=== PATIENT | male | born 1950 | race Caucasian/White ===

== ENCOUNTER 2018-04-04 20:10 | Emergency (ER) | payer MEDICARE, BC ==
[2018-04-04 20:40] VITALS: BP 187/73; PULSE 62; RESP 18; TEMP 98.4
--- NOTE | 2018-04-04 21:12 | ED ---
Upper Extremity HPI - General Chief Complaint: Extremity Injury, Upper Stated Complaint: Swollen hand Time Seen by Provider: 04/04/18 20:49 Source: patient Mode of arrival: ambulatory Limitations: no limitations - History of Present Illness Initial Comments: This is a 67-year-old male with past medical history of gout and previous DVT following an intra-abdominal surgery who presents today for chief complaint of left hand swelling x1 day. Patient states that last night he noticed swelling of his left hand and proximal forearm [place] evening they did not seek immediate medical attention, but has been icing and raising the left hand. He denies pain in the area, trauma to the hand or forearm, being bitten or stung by any insect, strenuous physical activity, pain in the hand, erythema, warmth, tenderness to palpation, fever, chills, chest pain, shortness of breath, facial swelling, numbness, hematuria, tingling or parathesias, cough, hoarseness or any other symptoms. Pt was concerned about a DVT so they presented to the ER with his daughter for further evaluation. Remainder ROS (-). VS stable. - Related Data Allergies Allergy/AdvReac Type Severity Reaction Status Date / Time No Known Allergies Allergy Verified 04/04/18 20:40 Review of Systems ROS Statement: Those systems with pertinent positive or pertinent negative responses have been documented in the HPI. ROS Other: All systems not noted in ROS Statement are negative. Constitutional: Denies: fever, chills Eyes: Denies: eye pain, vision change ENT: Denies: ear pain, throat pain Respiratory: Denies: cough, dyspnea, wheezes, hemoptysis, stridor Cardiovascular: Denies: chest pain, palpitations, orthopnea, edema Gastrointestinal: Denies: abdominal pain, nausea, vomiting, diarrhea, constipation, hematemesis, melena, hematochezia Genitourinary: Denies: urgency, dysuria Musculoskeletal: Denies: back pain Skin: Reports: as per HPI. Denies: rash, lesions Neurological: Denies: headache, weakness, numbness, paresthesias, confusion, abnormal gait Past Medical History Past Medical History: Hypertension History of Any Multi-Drug Resistant Organisms: None Reported Past Surgical History: Bowel Resection, Cholecystectomy, Pacemaker Additional Past Surgical History / Comment(s): colostomy repair Past Psychological History: No Psychological Hx Reported Smoking Status: Never smoker Past Alcohol Use History: Daily Past Drug Use History: None Reported General Exam - General Exam Comments Initial Comments: General: The patient is awake and alert, in no distress, and does not appear acutely ill. Patient appears very comfortable and pleasant. Eye: Pupils are equal, round and reactive to light, extra-ocular movements are intact. No nystagmus. There is normal conjunctiva bilaterally. No signs of icterus. Ears, nose, mouth and throat: There are moist mucous membranes and no oral lesions. Neck: The neck is supple, there is no tenderness or JVD. Cardiovascular: There is a regular rate and rhythm. No murmur, rub or gallop is appreciated. Respiratory: Lungs are clear to auscultation, respirations are non-labored, breath sounds are equal. No wheezes, stridor, rales, or rhonchi. Musculoskeletal: Normal ROM, no tenderness of the shoulders, elbows, wrists, hands bilaterally. No tenderness to palpation of the hands bilaterally. Strength 5/5 of the shoulders, elbow, wrists hands and digits bilaterally. Sensation intact of the hands bilaterally. Pulses equal bilaterally 2+. Less than 2 second capillary refill. Patient able to make the okay, fingers cross & stop- radial, ulnar and median n intact. Neurological: A&O x 3. CN II-XII intact, There are no obvious motor or sensory deficits. Coordination appears grossly intact. Speech is normal. Skin: Skin is warm and dry and no rashes or lesions are noted. Nonpitting, soft tissue swelling of the left hand, no evidence of erythema, ecchymosis, breaks in the skin/abrasions. Psychiatric: Cooperative, appropriate mood & affect, normal judgment. Limitations: no limitations Course Vital Signs 04/04/18 20:35 Temperature 98.4 F Pulse Rate 62 Respiratory 18 Rate Blood Pressure 187/73 O2 Sat by Pulse 96 Oximetry Medical Decision Making - Medical Decision Making Coagulation studies, uric acid, duplex ultrasound of the left upper extremity, and chest x-ray returned within normal limits. At this time we had low suspicion for a superior vena cava syndrome, DVT, or gout causing the left extremity swelling given studies a physical examination findings. Patient neurovascularly exam unremarkable, with no tenderness to palpation, no obvious deformities and no history of trauma at this time I feel x-ray is not indicated. Very low suspicion for overlying cellulitis as there is no erythema or breaks the skin. There was a chronic superficial thrombosis of the left upper extremity except possibly be causing the swelling of the left hand and forearm. Patient is to follow-up with his primary care in 1-2 days for further evaluation treatment. Case is discussed in detail with Dr. Baez at this time we feel pt is stable for d/c with close f/u. Pt was told to return to the ER for any change in symptoms and instructed to use [id number] NSAIDs, and elevate the hand. 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 Please elevate and apply heat to area as discussed. Please follow-up with family doctor in the next 2 days for further evaluation and treatment. Please return to emergency room if the symptoms increase or worsen or for any other concerns. Is patient prescribed a controlled substance at d/c from ED?: No Referrals: Nonstaff,Physician [Primary Care Provider] - 1-2 days Time of Disposition: 23:45
[2018-04-04 21:23] LABS: Partial Thromboplastin Time 22.2 sec (22.0-30.0); Prothrombin Time 9.8 sec (9.0-12.0)
--- NOTE | 2018-04-04 23:53 | US ---
EXAMINATION TYPE: US venous doppler duplex UE LT DATE OF EXAM: 04/04/2018 COMPARISON: NONE CLINICAL HISTORY: Pain. SIDE PERFORMED: Right Left Arm: Negative for DVT Basilic vein only shows partial compression. IMPRESSION: There is chronic venous thrombosis in the basilic vein which is a super facial vein. There is patency of the subclavian axillary veins. There is patency of the brachial vein. No deep venous thrombosis s een.
--- NOTE | 2018-04-05 00:03 | XR ---
EXAMINATION TYPE: XR chest 2V DATE OF EXAM: 04/04/2018 COMPARISON: 10/29/2011 HISTORY: Chest pain TECHNIQUE: Frontal and lateral views of the chest are obtained. FINDINGS: Heart and mediastinum are normal. Lungs are clear of infiltrate. There is no heart failure . Costophrenic angles are fairly clear. There is left axillary pacemaker with the lead tips in the ri ght ventricle. Bony thorax appears intact. IMPRESSION: No active cardiopulmonary disease. There is improved inspiration and clearing of some li near density at the left lung base compared to old exam.
== END 2018-04-05 00:05 | disposition home or self-care (01) ==
LOC: EC 20:10
DX: I82.712 Chronic embolism and thrombosis of superficial veins of left upper extremity (principal); Z95.0 Presence of cardiac pacemaker
CPT/HCPCS: 36415; 71046; 84550; 85610; 85730; 99284

== ENCOUNTER → 2019-03-23 | Outpatient (CLI) | payer MEDICARE, BC ==
[2019-03-23 15:05] LABS: HGB 17.2 gm/dL (13.0-17.5); MCH 30.4 pg (25.0-35.0); MCHC 33.1 g/dL (31.0-37.0); MCV 91.9 fL (80.0-100.0); Mean Platelet Volume 6.9; Platelet Count 222 k/uL (150-450); RBC 5.65 m/uL (4.30-5.90); RDW 13.5 % (11.5-15.5); WBC 8.6 k/uL (3.8-10.6)
[2019-03-23 18:14] LABS: Anion Gap 7.4 mmol/L (4.00-12.00); Calcium 10.1 mg/dL (8.7-10.3); Carbon Dioxide 29.6 mmol/L (21.6-31.8); Magnesium 1.9 mg/dL (1.5-2.4); Potassium 4.7 mmol/L (3.5-5.5)
== END | disposition home or self-care (01) ==
LOC: LABWHC1 14:46
PROVIDERS: ATTEND Internal Medicine Interventional Cardiology
DX: I42.9 Cardiomyopathy, unspecified (principal)
CPT/HCPCS: 36415; 80048; 83735; 85027

== ENCOUNTER 2023-10-15 14:55 | Day surgery (SDC) | payer MEDICARE, BC ==
[~2023-10-15 14:55] MED LIST: SODIUM CHLORIDE 0.9% 1,000 ML IV SCH
[2023-10-15] MEDS: SODIUM CHLORIDE 0.9% 500 ML 500 ML IV ONE (15:39)
[2023-10-15] MEDS: IOPAMIDOL-370 100ML BTL IVP ONE ×3 (16:03)
[2023-10-15 16:04] VITALS: BP 147/92; PULSE 56; RESP 16; TEMP 97.7
--- NOTE | 2023-10-15 16:50 | P.EPPROC ---
- EP Procedure Note Electrophysiology Procedure Note: Diagnosis Complete heart block Cardiomyopathy with 100% RV pacing, dual-chamber ICD in situ Previously attempts at LV lead placement proved to be futile Very tortuous coronary sinus Very tortuous anterior and anterolateral veins No lateral vein or posterolateral vein Multiple leads had been used from different manufacturers but none of them was stable in the anterolateral vein Procedure Cinefluoroscopy Dual-chamber ICD, single coil ICD lead no fractures or breaks Atrial lead and good position Left upper extremity venogram performed Very mild stenosis in the subclavian vein Significant 100% occlusion of a long segment of the innominate vein up to the SVC Right upper extremity venogram performed Patent right subclavian vein At this time the patient does not have any right upper extremity swelling on account of adequate collaterals draining finding into the SVC While the option for a left-sided left bundle lead exists, this may result in occlusion of the left subclavian vein resulting in bilateral extremity edema which should be avoided I would not attempt coronary sinus access or any attempt at LV lead placement via the coronary sinus veins Recommend Thoracoscopic approach for epicardial LV lead placement for management of cardiomyopathy with 100% RV pacing in the setting of complete heart block Discussed pros and cons with the patient
== END 2023-10-15 16:45 | disposition home or self-care (01) ==
LOC: CATHEP 14:55
PROVIDERS: ATTEND Internal Medicine Clinical Cardiac Electrophysiology
DX: I44.2 Atrioventricular block, complete (principal); Q26.0 Congenital stenosis of vena cava; I10 Essential (primary) hypertension; E11.9 Type 2 diabetes mellitus without complications; E78.5 Hyperlipidemia, unspecified; I49.5 Sick sinus syndrome; Z95.0 Presence of cardiac pacemaker; Z79.84 Long term (current) use of oral hypoglycemic drugs; Z79.899 Other long term (current) drug therapy
CPT/HCPCS: 36005; 75820; Q9967

== ENCOUNTER → 2023-12-09 | Outpatient (CLI) | payer MEDICARE, BC ==
[2023-12-09 15:38] LABS: Basophils # (A) 0.2 k/uL (0-0.2); Basophils % (A) 2 %; Eosinophils # (A) 0.2 k/uL (0-0.7); Eosinophils % (A) 3 %; HCT 51.2 % (39.0-53.0); HGB 17.4 gm/dL (13.0-17.5); Lymphocytes # (A) 2.6 k/uL (1.0-4.8); Lymphocytes % (A) 29 %; MCHC 33.9 g/dL (31.0-37.0); MCV 91.3 fL (80.0-100.0); Mean Platelet Volume 7.7; Monocytes # (A) 0.6 k/uL (0-1.0); Monocytes % (A) 7 %; Neutrophils # (A) 5.2 k/uL (1.3-7.7); Neutrophils % (A) 58 %; Platelet Count 191 k/uL (150-450); RBC 5.61 m/uL (4.30-5.90); RDW 12.8 % (11.5-15.5); WBC 9.1 k/uL (3.8-10.6)
[2023-12-09 15:54] LABS: Partial Thromboplastin Time 23.2 sec (22.0-30.0); Prothrombin Time 10.9 sec (10.0-12.5)
[2023-12-09 16:18] LABS: African American GFR (CKD) 89 (>60 ml/min/1.73 sqM); Anion Gap 7 mmol/L; Blood Urea Nitrogen 17 mg/dL (9-20); Carbon Dioxide 29 mmol/L (22-30); Chloride 98 mmol/L (98-107); Glucose 247 mg/dL (74-99); Non-African American GFR(CKD) 77 (>60 ml/min/1.73 sqM); Potassium 4.2 mmol/L (3.5-5.1); Sodium 134 mmol/L (137-145)
[2023-12-09 18:18] LABS: Appearance,Urine Clear (Clear); Bilirubin,Urine Negative (Negative); Blood,Urine Negative (Negative); Color,Urine Yellow; Glucose,Urine (UA) 4+ (Negative); Ketones,Urine Negative (Negative); Leukocyte Esterase,Urine Negative (Negative); Nitrite,Urine Negative (Negative); Protein,Urine Negative (Negative); Urobilinogen,Urine <2.0 mg/dL (<2.0)
== END | disposition home or self-care (01) ==
LOC: LABPAT 14:55
PROVIDERS: ATTEND Thoracic Surgery (Cardiothoracic Vascular Surgery)
DX: Z01.812 Encounter for preprocedural laboratory examination (principal); R53.83 Other fatigue; R58 Hemorrhage, not elsewhere classified; Z79.899 Other long term (current) drug therapy
CPT/HCPCS: 80051; 81003; 82565; 82947; 84520; 85025; 85610; 85730; 86850; 86900; 86901; 87086

== ENCOUNTER 2023-12-10 09:37 | Inpatient (IN) | payer MEDICARE, BC ==
[~2023-12-10 09:37] MED LIST changes: +LIDOCAINE 1% (10MG/ML) FOR IV START INTRADERMA PRN; +MIDAZOLAM 2 MG/2 ML VIAL IV PRN; -SODIUM CHLORIDE 0.9% 1,000 ML IV SCH
[2023-12-10] MEDS: LACTATED RINGERS 1,000 ML IV SCH (10:07)
[2023-12-10 10:29] LABS: Glucose,Whole Blood 255 mg/dL (70-110)
[2023-12-10] MEDS: INSULIN ASPART (NovoLOG) 100 UNIT/ML VIAL SQ ONE (10:32)
[2023-12-10] MEDS: ONDANSETRON 4 MG/2 ML VIAL IVP ONE ×2 (10:32→17:15)
[2023-12-10] MEDS: MIDAZOLAM 2 MG/2 ML VIAL IVP ONE (10:36)
[2023-12-10] MEDS: fentaNYL (PF) 50 MCG/ML 2 ML AMP IVP ONE (10:36)
[2023-12-10] MEDS: BUPIVACAINE (PF) 0.5% 30 ML VIAL SQ ONE ×3 (10:44→13:27)
--- NOTE | 2023-12-10 10:52 | P.ANPRN ---
Procedure Note - Anesthesia - Nerve Block Performed Left Erector Spinae Single Time Out Performed: Yes (1038) Date of Procedure: 12/10/23 Procedure Start Time: 10:39 Procedure Stop Time: 10:44 Location of Patient: PreOp Indication: Acute Post-Operative Pain, Requested by Surgeon Specifically requested for management of pain by DrHilario: John Bobby Sedation Type: Sedate with meaningful contact maintained Preparation: Sterile Prep Position: Sitting Catheter: None Needle Types: Pajunk Needle Gauge: 21 Ultrasound used to visualize needle placement: Yes Ultrasound used to observe medication spread: Yes Injectate: 0.5% Ropivacaine (see comment for volume) (30cc) Blood Aspirated: No Pain Paresthesia on Injection Noted: No Resistance on Injection: Normal Image Stored and Saved: Yes Events: Uneventful and Well Tolerated
[2023-12-10] MEDS ORDERED: NEOSTIGMINE 1 MG/ML 10 ML VIAL ONE (11:32)
[2023-12-10] MEDS ORDERED: ePHEDrine 50 MG/ML 1 ML VIAL ONE (11:32)
[2023-12-10] MEDS ORDERED: ROPIVACAINE 5 MG/ML 30 ML VIAL ONE (11:32)
[2023-12-10] MEDS ORDERED: LIDOCAINE 1% INJ 10MG/ML (20 ML MDV) ONE (11:32)
[2023-12-10] MEDS ORDERED: GLYCOPYRROLATE 0.2 MG/ML 2 ML VIAL ONE (11:32)
[2023-12-10] MEDS ORDERED: WATER FOR INJECTION, STERILE 10 ML VIAL IV ONE (11:32)
[2023-12-10] MEDS ORDERED: PROPOFOL 10 MG/ML 20 ML VIAL IV ONE (11:32)
[2023-12-10] MEDS ORDERED: ACETAMINOPHEN IV (For NPO) 1,000 MG/100 ML VIAL ONE (11:32)
[2023-12-10] MEDS ORDERED: fentaNYL (PF) 50 MCG/ML 2 ML AMP ONE (11:32)
[2023-12-10] MEDS ORDERED: ROCURONIUM 10 MG/ML (5 ML VIAL) IV ONE (11:32)
[2023-12-10 12:50] LABS: Glucose,Whole Blood 217 mg/dL (70-110)
[2023-12-10] MEDS: LACTATED RINGERS 1,000 ML IV ONE (13:22)
--- NOTE | 2023-12-10 13:56 | P.OP ---
Date of Procedure: 12/10/23 Preoperative Diagnosis: Complete Heart Block s/p Dual ICD with RV Lead. Postoperative Diagnosis: Same Procedure(s) Performed: 1. Bronchoscopy 2. Left video assisted thorascopic surgery with epicardial LV lead placement. 3. Upgrade of [employer] BiV Pacer with single coil RV ICD lead to [employer]-P with LV epidcardial lead Implants: [employer] RF Cardiac Resynchronization Therapy Pulse Generator - PPM Model # [id number] Serial # [id number] Epicardial LV Lead [employer] Model #[id number] Serial #[id number] Anesthesia: GETA Surgeon: John Bobby Bulldozer/Loader/Compactor/Scraper #1: Yves Fuentes Bulldozer/Loader/Compactor/Scraper #2: Michael Moran Estimated Blood Loss (ml): 25 Pathology: none sent Condition: stable Disposition: PACU Indications for Procedure: This patient is a 73 year-old M with CHF and cardiomyopathy in the past who had PPM with a RV ICD. The patient now requires conversion to a Dual chamber PPM, His EF improved and the ICD was note indicated. Operative Findings: Chronic Lead Numbers normal New LV epicardial lead R wave - 2.1 mV Imp 496 ohms Amp 1.0V @ 0.5ms Description of Procedure: The patient was brought back to the operating room and placed in the supine position. The patient was intubated with a double lumen tube and bronchoscopy was performed to confirm position. The patient was then positioned in the right lateral decubitus position and his left chest was prepped and draped in the usual sterile fashion. A 3cm incision was made in the 8th intercostal space posterior axillary line. An additional 2cm incision was made in the 10th intercostal space mid axillary line and a 1cm incision was made anteriorly in the 6th intercostal space. The pericardium was incised using an endo shear and opened longitudinally under the phrenic nerve. The screw in lead was placed on the LV away from the coronary arteries. This was tunneled anteriorly. A 28F chest tube was placed via the anterior incision and two lung ventilation was resumed. All incisions were closed in layers. The patient was placed supine and re-prepped and draped. The tunneled lead when then tunneled once again superiorly to the pocket which was opened and RA, RV and LV leads were fastened to the new generator which was connected and tested. These incisions were then closed in layers again. Of note, the generator was placed in antibiotic case.
[2023-12-10] MEDS: HYDROmorphone 0.5 MG/0.5 ML SYRINGE IVP PRN (14:14)
[2023-12-10 14:17] LABS: Glucose,Whole Blood 200 mg/dL (70-110)
--- NOTE | 2023-12-10 14:23 | XR ---
EXAMINATION TYPE: XR chest 1V portable DATE OF EXAM: 12/10/2023 COMPARISON: 04/04/2018 HISTORY: Postop TECHNIQUE: Single frontal view of the chest is obtained. FINDINGS: Limited inspiration with bilateral consolidation and pleural effusion. Heart is enlarged. Arthropathy of the shoulders and degenerative change of the spine. Cardiac device is stable. Left-sided chest tube with no sizable pneumothorax. Small bilateral pleural effusions. Surgical clips in the upper abdomen. Subcutaneous emphysema along the left chest. IMPRESSION: 1. Left-sided chest tube with bilateral consolidation and small effusion. No sizable pneumothorax. Mi ld venous congestion in the differential diagnosis.
[2023-12-10 16:31] LABS: Glucose,Whole Blood 227 mg/dL (70-110)
[2023-12-10] MEDS ORDERED: METOCLOPRAMIDE 5 MG/ML 2 ML VIAL IVP PRN (16:55)
[2023-12-10] MEDS ORDERED: bisacodyL 10 MG SUPP RECTAL PRN (16:55)
[2023-12-10] MEDS ORDERED: ONDANSETRON 4 MG/2 ML VIAL IVP PRN (16:55)
[2023-12-10] MEDS ORDERED: IPRATROPIUM-ALBUTEROL 3 ML NEB IH PRN (16:55)
[2023-12-10] MEDS ORDERED: traMADol 50 MG TAB PO PRN (16:55)
[2023-12-10] MEDS: IPRATROPIUM-ALBUTEROL 3 ML NEB IH SCH (17:08)
[2023-12-10] MEDS: ceFAZolin 3 GM in SODIUM CHLORIDE 0.9% 100 ML IVPB SCH (17:15)
[2023-12-10] MEDS: DEXAMETHASONE SOD PHOSPHATE 4 MG/ML 1 ML VIAL IV ONE (17:15)
[2023-12-10 17:34] LABS: Basophils # (A) 0.1 k/uL (0-0.2); Basophils % (A) 0 %; Eosinophils # (A) 0.1 k/uL (0-0.7); Eosinophils % (A) 0 %; HCT 48.6 % (39.0-53.0); HGB 16.4 gm/dL (13.0-17.5); Lymphocytes # (A) 1.3 k/uL (1.0-4.8); Lymphocytes % (A) 8 %; MCH 30.9 pg (25.0-35.0); MCHC 33.8 g/dL (31.0-37.0); MCV 91.6 fL (80.0-100.0); Mean Platelet Volume 7.6; Monocytes # (A) 0.8 k/uL (0-1.0); Monocytes % (A) 5 %; Neutrophils # (A) 13.8 k/uL (1.3-7.7); Neutrophils % (A) 85 %; Platelet Count 151 k/uL (150-450); RDW 12.8 % (11.5-15.5); WBC 16.2 k/uL (3.8-10.6)
[2023-12-10 17:50] LABS: African American GFR (CKD) >90 (>60 ml/min/1.73 sqM); Anion Gap 6 mmol/L; Blood Urea Nitrogen 18 mg/dL (9-20); Calcium 8.7 mg/dL (8.4-10.2); Carbon Dioxide 27 mmol/L (22-30); Chloride 100 mmol/L (98-107); Glucose 208 mg/dL (74-99); Non-African American GFR(CKD) 84 (>60 ml/min/1.73 sqM); Sodium 133 mmol/L (137-145)
[2023-12-10] MEDS: HEPARIN SODIUM,PORCINE 5,000 UNIT/ML 1 ML VIAL SQ SCH (17:51)
[2023-12-10] MEDS: KETOROLAC 15 MG/ML 1 ML VIAL IVP SCH (17:52)
[2023-12-10] MEDS: traZODone HCL 100 MG TAB PO SCH (20:09)
[2023-12-10] MEDS: carvediloL 12.5 MG TAB PO SCH (20:09)
[2023-12-10] MEDS: FORMOTEROL FUMARATE 20 MCG/2 ML NEBU INHALATION SCH (20:38)
[2023-12-11 07:42] LABS: African American GFR (CKD) >90 (>60 ml/min/1.73 sqM); Anion Gap 3 mmol/L; Blood Urea Nitrogen 19 mg/dL (9-20); Calcium 8.1 mg/dL (8.4-10.2); Carbon Dioxide 27 mmol/L (22-30); Chloride 99 mmol/L (98-107); Glucose 257 mg/dL (74-99); Non-African American GFR(CKD) 83 (>60 ml/min/1.73 sqM); Potassium 4.1 mmol/L (3.5-5.1); Sodium 129 mmol/L (137-145)
[2023-12-11 07:54] LABS: Basophils # (A) 0.1 k/uL (0-0.2); Basophils % (A) 1 %; Eosinophils # (A) 0.2 k/uL (0-0.7); Eosinophils % (A) 2 %; HCT 44.6 % (39.0-53.0); Lymphocytes # (A) 1.5 k/uL (1.0-4.8); Lymphocytes % (A) 17 %; MCH 30.7 pg (25.0-35.0); MCHC 33.6 g/dL (31.0-37.0); MCV 91.2 fL (80.0-100.0); Mean Platelet Volume 7.8; Monocytes # (A) 0.7 k/uL (0-1.0); Monocytes % (A) 7 %; Neutrophils # (A) 6.4 k/uL (1.3-7.7); Neutrophils % (A) 72 %; Platelet Count 167 k/uL (150-450); RBC 4.89 m/uL (4.30-5.90); RDW 12.9 % (11.5-15.5); WBC 8.8 k/uL (3.8-10.6)
--- NOTE | 2023-12-11 07:58 | XR ---
EXAMINATION TYPE: XR chest 1V DATE OF EXAM: 12/11/2023 COMPARISON: 12/10/2023 HISTORY: Postop TECHNIQUE: Single frontal view of the chest is obtained. FINDINGS: Limited inspiration with bilateral consolidation and pleural effusion. Heart is enlarged. Arthropathy of the shoulders and degenerative change of the spine. Cardiac device is stable. Left-sided chest tube with no sizable pneumothorax. Small bilateral pleural effusions. Surgical clips in the upper abdomen. Sub cutaneous emphysema along the left chest. IMPRESSION: Left-sided chest tube with bilateral consolidation and small effusion. No sizable pneumo thorax. Mild venous congestion in the differential diagnosis. Findings stable.
--- NOTE | 2023-12-11 08:34 | P.PN ---
Subjective Progress Note Date: 12/11/23 Principal diagnosis: Complete Heart Block s/p Dual ICD with RV Lead. History of hypertension, DVT, BPH, gout, skin cancer, lifelong non-smoker POD #1 bronchoscopy, left video assisted thorascopic surgery with epicardial LV lead placement, upgrade of [employer] [employer] BiV Pacer with single coil RV ICD lead to [employer]-P with LV epidcardial lead The patient was seen and examined this morning sitting up in recliner on the cardiac stepdown unit in no acute distress. Denies pain or shortness of breath. Has been ambulatory without difficulty. Has had difficulty voiding and has had to be straight cathed. Left pleural chest tube remains to waterseal, no airleak present, 120 mL serosanguineous output since surgery yesterday. No other new concerns. Objective - Vital Signs Vital signs: Vital Signs Temp 98.4 F 12/11/23 03:34 Pulse 60 12/11/23 03:34 Resp 18 12/11/23 06:19 BP 120/73 12/11/23 03:34 Pulse Ox 92 L 12/11/23 06:19 FiO2 Intake & Output 12/10/23 12/11/23 12/11/23 18:59 06:59 18:59 Intake Total 1650 Output Total 70 543 Balance 1580 -543 Weight 99.1 kg 99.2 kg Intake: IV 1650 Output: Chest Tube Drainage 50 93 Chest Tube Left Upper Mid 50 93 -Axillary Chest Urine 450 Straight 450 Estimated Blood Loss 20 - Exam CONSTITUTIONAL: Appears comfortable, cooperative, no acute distress RESPIRATORY: Lungs sounds diminished bilaterally. Respirations even, nonlabored. Currently on 2 L nasal cannula with oxygen saturation 96%. Able to achieve 1500 mL on incentive spirometry. Strong cough. CARDIOVASCULAR: S1, S2 present. Regular rate and rhythm, ventricular paced on telemetry. Palpable peripheral pulses bilaterally. No edema present. No calf pain or tenderness noted. SCDs present. GASTROINTESTINAL: Abdomen soft, nontender, nondistended. Active bowel sounds present 4 quadrants. Tolerating diet GENITOURINARY: Unable to void yet, needed straight catheterization last night INTEGUMENTARY: Skin is warm and dry with evidence of good perfusion NEUROLOGIC: Cranial nerves II through XII intact MUSKULOSKELETAL: Able to move all extremities, strength equal bilaterally, gait normal PSYCHIATRIC: Alert and oriented to person place and time, appropriate affect, intact judgment and insight INVASIVE LINES AND TUBES: Left pleural chest tube present to waterseal, no air leaks present, 53 mL serosanguineous drainage overnight, 120 mL since surgery - Allied health notes Allied health notes reviewed: nursing - Labs CBC & Chem 7: 12/11/23 07:15 12/11/23 07:15 Labs: Abnormal Lab Results - Last 24 Hours (Table) 12/10/23 12/10/23 12/10/23 Range/Units 10:26 12:48 14:16 WBC (3.8-10.6) k/uL Neutrophils # (1.3-7.7) k/uL Sodium (137-145) mmol/L Glucose (74-99) mg/dL POC Glucose (mg/dL) 255 H 217 H 200 H (70-110) mg/dL Calcium (8.4-10.2) mg/dL 12/10/23 12/10/23 12/10/23 Range/Units 16:30 17:00 17:00 WBC 16.2 H (3.8-10.6) k/uL Neutrophils # 13.8 H (1.3-7.7) k/uL Sodium 133 L (137-145) mmol/L Glucose 208 H (74-99) mg/dL POC Glucose (mg/dL) 227 H (70-110) mg/dL Calcium (8.4-10.2) mg/dL 12/11/23 Range/Units 07:15 WBC (3.8-10.6) k/uL Neutrophils # (1.3-7.7) k/uL Sodium 129 L (137-145) mmol/L Glucose 257 H (74-99) mg/dL POC Glucose (mg/dL) (70-110) mg/dL Calcium 8.1 L (8.4-10.2) mg/dL - Imaging and Cardiology Chest x-ray: report reviewed, image reviewed Assessment and Plan Assessment: Complete Heart Block s/p Dual ICD with RV Lead, status post bronchoscopy, left video assisted thorascopic surgery with epicardial LV lead placement, upgrade of [employer] BiV Pacer with single coil RV ICD lead to [employer]-P with LV epidcardial lead History of hypertension DVT BPH Gout Skin cancer Lifelong non-smoker Plan: Continue to maximize medical therapy with Coreg, Cozaar Wean O2 as tolerated, encourage incentive spirometry use 10 times every hour while awake Increase activity, ambulate as tolerated Continue to monitor urine output, retention likely due to anesthesia Likely will discontinue left pleural chest tube today, repeat chest x-ray in the morning More recommendations to follow
[2023-12-11] MEDS: LORATADINE 10 MG TAB PO SCH (09:14)
[2023-12-11] MEDS: TAMSULOSIN 0.4 MG CAP.ER.24H PO SCH (09:14)
[2023-12-11] MEDS: LOSARTAN 50 MG TAB PO SCH (09:14)
[2023-12-11] MEDS: FLUTICASONE 50MCG/SPRAY NASAL 16GM EA NOSTRIL SCH (09:14)
--- NOTE | 2023-12-11 14:01 | P.CRDCN ---
History of Present Illness Consult date: 12/11/23 Reason for Consult (text): cardiac management History of present illness: History of present illness: This is a 73-year-old male patient of Dr. TOMASZ Mchugh with past medical history of nonischemic cardiomyopathy with unsuccessful LV lead placement in 2011 due to occluded left subclavian, sick sinus syndrome status post pacemaker, hypertension, hyperlipidemia, diabetes mellitus type 2. Patient was brought into the hospital under the care of of Dr. Bobby, cardiovascular surgeon, for bronchoscopy, left video-assisted pleuroscopy surgery with epicardial LV lead placement. Patient had upgrade to a BiV pacer with single coil RV ICD lead to the [place]ida PEN RULER OPERATOR-P with LV epicardial lead. Patient is to be seen by device rep today and Dr. Griffiths will discuss settings with the rep. EKG has been reviewed by Dr. Griffiths Chest x-ray: Left-sided chest tube with bilateral consolidation and small effusion. No sizable pneumothorax. Mild venous congestion. Initial WBC 16.2 now 8.8, hemoglobin 15. Sodium 129, potassium 4.1, BUN 19 creatinine 0.9. Blood sugar 257. Home cardiac medications: Carvedilol 12.5 mg twice daily Review Of Systems: At the time of my exam: CONSTITUTIONAL: Denies fever or chills. HEENT: Denies blurred vision, vision changes, or eye pain. Denies hemoptysis CARDIOVASCULAR: Denies chest pain. Denies orthopnea. Denies PND. Denies palpitations RESPIRATORY: Denies shortness of breath. GASTROINTESTINAL: Denies abdominal pain. Denies nausea or vomiting. HEMATOLOGIC: Denies bleeding disorders. GENITOURINARY: Denies any blood in urine. SKIN: Denies pruitis. Denies rash. Physical examination: Gen: This is a 73-year-old male in no acute distress. VS: reviewed blood pressure 103/71, heart rate in the 60s. HEENT: Head is atraumatic, normocephalic. Pupils equal, round. Sclerae is anicteric. NECK: Supple. No JVD. LUNGS: Clear to auscultation. No wheezes or rhonchi. No intercostal retractions. Left pleural chest tube. HEART: Regular rate and rhythm. No murmur. ABDOMEN: Soft No tenderness. EXTREMITIES: No pedal edema. No calf tenderness. NEUROLOGICAL: Patient is awake, alert and oriented x3. Assessment: Epicardial LV lead placement Nonischemic cardiomyopathy status post dual-chamber ICD and RV lead Sick sinus syndrome status post pacemaker Hypertension Hyperlipidemia Plan: Continue patient's home cardiac medications Further recommendations to follow based upon clinical course Thank you kindly for this consultation. Nurse practitioner note has been reviewed, I agree with documented findings and plan of care. Patient was seen and examined. Past Medical History Past Medical History: Cancer, Deep Vein Thrombosis (DVT), Eye Disorder, Hypertension, Osteoarthritis (OA), Sleep Apnea/CPAP/BIPAP Additional Past Medical History / Comment(s): Please see Dr. Griffiths's H&P. 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 uses CPAP, no recent flares of gout History of Any Multi-Drug Resistant Organisms: None Reported Past Surgical History: Bowel Resection, Cholecystectomy, Joint Replacement, Pacemaker Additional Past Surgical History / Comment(s): Colonoscopy with perforation/resection/colostomy/colostomy with reversal, lft knee replaced Past Anesthesia/Blood Transfusion Reactions: No Reported Reaction Type of Cardiac Device: Permanent Pacemaker Device Placement Date:: 2011 Past Psychological History: No Psychological Hx Reported Additional Psychological History / Comment(s): Pt resides with spouse. No device. Smoking Status: Never smoker Past Alcohol Use History: Occasional Past Drug Use History: None Reported - Past Family History Father Family Medical History: No Reported History Mother Family Medical History: COPD, Coronary Artery Disease (CAD), Vascular Disorder Additional Family Medical History / Comment(s): Heavy smoker Medications and Allergies Home Medications Medication Instructions Recorded Confirmed Type Acetaminophen Tab [Tylenol] 325 mg PO Q4-6H PRN 09/24/23 12/10/23 History Indomethacin [Indocin] 50 mg PO HS 09/24/23 12/10/23 History Iron Pill 1 tab PO QAM 09/24/23 12/10/23 History Azelastine HCl [Astepro] 1 spray NASAL BID PRN 10/12/23 12/10/23 History Cetirizine HCl 10 mg PO DAILY 10/12/23 12/10/23 History Fluticasone Nasal [place] [Flonase 1 spray EA NOSTRIL DAILY 10/12/23 12/10/23 History Nasal [place]] Losartan Potassium 100 mg PO DAILY 10/12/23 12/10/23 History Tamsulosin HCl [Flomax] 0.4 mg PO DAILY 10/12/23 12/10/23 History carvediloL 12.5 mg PO BID 10/12/23 12/10/23 History traZODone HCL 150 mg PO HS 10/12/23 12/10/23 History Allergies Allergy/AdvReac Type Severity Reaction Status Date / Time No Known Allergies Allergy Verified 12/10/23 10:15 Physical Exam Vitals: Vital Signs Temp Pulse Pulse Pulse Resp BP BP 12/11/23 06:19 18 12/11/23 03:34 98.4 F 60 18 120/73 12/11/23 01:10 18 12/10/23 23:40 97.9 F 68 18 117/63 12/10/23 19:48 97.5 F L 76 18 118/71 12/10/23 18:00 65 140/71 12/10/23 17:18 68 12/10/23 17:09 66 12/10/23 16:05 97.5 F L 60 16 132/82 12/10/23 15:32 60 16 127/66 12/10/23 15:17 60 16 135/72 12/10/23 15:02 60 16 123/72 12/10/23 14:47 63 16 129/76 12/10/23 14:32 60 16 137/80 12/10/23 14:17 60 16 135/83 12/10/23 14:02 60 16 147/83 12/10/23 13:47 97.2 F L 65 24 135/79 12/10/23 10:51 51 L 16 98/56 12/10/23 10:10 97.1 F L 53 L 18 120/70 Pulse Ox 12/11/23 06:19 92 L 12/11/23 03:34 96 12/11/23 01:10 12/10/23 23:40 96 12/10/23 19:48 97 12/10/23 18:00 100 12/10/23 17:18 12/10/23 17:09 96 12/10/23 16:05 83 L 12/10/23 15:32 92 L 12/10/23 15:17 93 L 12/10/23 15:02 93 L 12/10/23 14:47 95 12/10/23 14:32 93 L 12/10/23 14:17 99 12/10/23 14:02 94 L 12/10/23 13:47 95 12/10/23 10:51 95 12/10/23 10:10 96 Intake and Output 12/10/23 12/11/23 12/11/23 22:59 06:59 14:59 Intake Total 400 Output Total 90 503 Balance 310 -503 Intake: IV 400 Output: Chest Tube Drainage 90 53 Chest Tube Left Upper Mid 90 53 -Axillary Chest Urine 450 Straight 450 Other: Weight 99.2 kg Results 12/11/23 07:15 12/11/23 07:15 CBC 12/10/23 12/11/23 Range/Units 17:00 07:15 WBC 16.2 H 8.8 (3.8-10.6) k/uL RBC 5.30 4.89 (4.30-5.90) m/uL Hgb 16.4 15.0 (13.0-17.5) gm/dL Hct 48.6 44.6 (39.0-53.0) % Plt Count 151 167 (150-450) k/uL Comprehensive Metabolic Panel 12/10/23 12/11/23 Range/Units 17:00 07:15 Sodium 133 L 129 L (137-145) mmol/L Potassium 4.0 4.1 (3.5-5.1) mmol/L Chloride 100 99 (98-107) mmol/L Carbon Dioxide 27 27 (22-30) mmol/L BUN 18 19 (9-20) mg/dL Creatinine 0.89 0.90 (0.66-1.25) mg/dL Glucose 208 H 257 H (74-99) mg/dL Calcium 8.7 8.1 L (8.4-10.2) mg/dL Current Medications Generic Name Dose Route Start Last Admin Trade Name Freq PRN Reason Stop Dose Admin Acetaminophen 1,000 mg 12/10/23 16:55 Acetaminophen Tab 500 Mg Tab PO Q6HR PRN Mild to Moderate Pain (1 - 6) Albuterol/Ipratropium 3 ml 12/10/23 16:55 Ipratropium-Albuterol 3 Ml Neb IH RT-Q1H PRN Shortness Of Breath Or Wheezing Albuterol/Ipratropium 3 ml 12/10/23 16:55 04/11/24 20:38 Ipratropium-Albuterol 3 Ml Neb IH Not Given RT-QID [facility] Bisacodyl 10 mg 12/10/23 16:55 Bisacodyl 10 Mg Supp RECTAL DAILY PRN Constipation Carvedilol 12.5 mg 12/10/23 21:00 12/10/23 20:09 Carvedilol 12.5 Mg Tab PO 12.5 mg BID [facility] Administration Fluticasone Propionate 1 spray 12/11/23 09:00 Fluticasone 50mcg/Randolph Nasal 16gm EA NOSTRIL DAILY [facility] Formoterol Fumarate 20 mcg 12/10/23 20:00 12/10/23 20:38 Formoterol Fumarate 20 Mcg/2 Ml Nebu INHALATION Not Given RT-BID [facility] Heparin Sodium (Porcine) 5,000 unit 12/10/23 16:55 12/10/23 23:30 Heparin Sodium,Porcine 5,000 Unit/Ml 1 Ml Vial SQ 5,000 unit Q8HR [facility] Administration Ketorolac Tromethamine 15 mg 12/10/23 18:00 12/11/23 06:20 Ketorolac 15 Mg/Ml 1 Ml Vial IVP 12/13/23 18:01 15 mg Q6HR [facility] Administration Loratadine 10 mg 12/11/23 09:00 Loratadine 10 Mg Tab PO DAILY [facility] Losartan Potassium 100 mg 12/11/23 09:00 Losartan 50 Mg Tab PO DAILY [facility] Metoclopramide HCl 5 mg 12/10/23 16:55 Metoclopramide 5 Mg/Ml 2 Ml Vial IVP Q4HR PRN Nausea And Vomiting Ondansetron HCl 4 mg 12/10/23 16:55 Ondansetron 4 Mg/2 Ml Vial IVP Q8HR PRN Nausea And Vomiting Tamsulosin HCl 0.4 mg 12/11/23 09:00 Tamsulosin 0.4 Mg Cap.Er.24h PO DAILY [facility] Tramadol HCl 50 mg 12/10/23 16:55 Tramadol 50 Mg Tab PO QID PRN Severe Pain (Scale 7 to 10) Trazodone HCl 150 mg 12/10/23 21:00 12/10/23 20:09 Trazodone Hcl 100 Mg Tab PO 150 mg [facility] Administration Intake and Output 12/10/23 12/11/23 12/11/23 22:59 06:59 14:59 Intake Total 400 Output Total 90 503 Balance 310 -503 Intake: IV 400 Output: Chest Tube Drainage 90 53 Chest Tube Left Upper Mid 90 53 -Axillary Chest Urine 450 Straight 450 Other: Weight 99.2 kg 12/11/23 07:15 12/11/23 07:15
[2023-12-11] MEDS: ACETAMINOPHEN TAB 500 MG TAB PO PRN (22:57)
--- NOTE | 2023-12-12 08:14 | P.PN ---
Subjective Progress Note Date: 12/12/23 Principal diagnosis: Complete Heart Block s/p Dual ICD with RV Lead. History of nonischemic cardiomyopathy, sick sinus syndrome, hypertension, hyperlipidemia, DVT, BPH, gout, skin cancer, lifelong non-smoker POD #2 bronchoscopy, left video assisted thorascopic surgery with epicardial LV lead placement, upgrade of [place] [employer] BiV Pacer with single coil RV ICD lead to Partida TITLE SEARCHER-P with LV epidcardial lead The patient was seen and examined this morning sitting up in recliner on the cardiac stepdown unit in no acute distress. Denies pain or shortness of breath. Has been ambulatory without difficulty. Left pleural chest tube discontinued yesterday, does still have some leakage around the site and some swelling at one of his incision sites, to be expected. Patient would like to go home, earlier rather than later as he has a 6-hour drive to get back home to the . No other new concerns. Objective - Vital Signs Vital signs: Vital Signs Temp 97.2 F L 12/11/23 20:50 Pulse 60 12/12/23 04:00 Resp 18 12/12/23 04:00 BP 118/73 12/12/23 04:00 Pulse Ox 96 12/12/23 04:00 FiO2 Intake & Output 12/11/23 12/12/23 12/12/23 18:59 06:59 18:59 Intake Total 630 20 Output Total 500 Balance 130 20 Intake: IV 30 20 Invasive Line 1 10 Invasive Line 3 20 20 Oral 600 Output: Urine 300 Post Void Residual 200 Other: Voiding Method Toilet Urinal # Voids 1 - Exam CONSTITUTIONAL: Appears comfortable, cooperative, no acute distress RESPIRATORY: Lungs sounds diminished bilaterally. Respirations even, nonlabored. Currently on room air with oxygen saturation 96%. Able to achieve 1500 mL on incentive spirometry. Strong cough. CARDIOVASCULAR: S1, S2 present. Regular rate and rhythm, AV paced on telemetry. Palpable peripheral pulses bilaterally. No edema present. No calf pain or tenderness noted. SCDs present. GASTROINTESTINAL: Abdomen soft, nontender, nondistended. Active bowel sounds present 4 quadrants. Tolerating diet GENITOURINARY: Continues to void INTEGUMENTARY: Skin is warm and dry with evidence of good perfusion NEUROLOGIC: Cranial nerves II through XII intact MUSKULOSKELETAL: Able to move all extremities, strength equal bilaterally, gait normal PSYCHIATRIC: Alert and oriented to person place and time, appropriate affect, intact judgment and insight - Allied health notes Allied health notes reviewed: nursing - Labs CBC & Chem 7: 12/11/23 07:15 12/11/23 07:15 - Imaging and Cardiology Chest x-ray: report reviewed, image reviewed Assessment and Plan Assessment: Complete Heart Block s/p Dual ICD with RV Lead, status post bronchoscopy, left video assisted thorascopic surgery with epicardial LV lead placement, upgrade of [place] [employer] BiV Pacer with single coil RV ICD lead to Partida TITLE SEARCHER-P with LV epidcardial lead Nonischemic cardiomyopathy Sick sinus syndrome History of hypertension Hyperlipidemia DVT BPH Gout Skin cancer Lifelong non-smoker Plan: Continue to maximize medical therapy with Coreg Cozaar Encourage incentive spirometry use 10 times every hour while awake Increase activity, ambulate as tolerated Chest x-ray reviewed Anticipate discharge to home this morning
[2023-12-12 10:05] VITALS: BP 123/65; PULSE 59; RESP 16; TEMP 98.3
--- NOTE | 2023-12-12 11:34 | P.DS ---
Providers Date of admission: 12/11/23 12:59 Expected date of discharge: 12/12/23 Attending physician: John Bobby MD Consults: 12/10/23 16:55 Consult Physician Routine Consulting Provider: Kaden Griffiths Consult Reason/Comments: cardiology management Do you want consulting provider notified?: Yes Primary care physician: Stated None Hospital Course: FINAL DIAGNOSIS: Complete Heart Block s/p Dual ICD with RV Lead, status post bronchoscopy, left video assisted thorascopic surgery with epicardial LV lead placement, upgrade of [place] [employer] BiV Pacer with single coil RV ICD lead to Partida LINE DANCER-P with LV epidcardial lead Nonischemic cardiomyopathy Sick sinus syndrome History of hypertension Hyperlipidemia DVT BPH Gout Skin cancer Lifelong non-smoker PRINCIPAL PROCEDURE: Bronchoscopy Left video assisted thorascopic surgery with epicardial LV lead placement Upgrade of [place] [employer] BiV Pacer with single coil RV ICD lead to Partida LINE DANCER-P with LV epidcardial lead HISTORY OF PRESENT ILLNESS: This is a 73-year-old gentleman who lives in the [facility] but who continues to follow with Dr. Mchugh for cardiology and Dr. Griffiths for electrophysiology. He has been pacemaker dependent since 2011 for complete heart block. Unfortunately Dr. Griffiths has not been able to place an RV lead percutaneously due to central venous stenosis as well as small coronary sinus. The patient was referred to Dr. Bobby from cardiothoracic surgery. He was recommended to undergo surgical placement of LV lead via left thoracoscopic approach. The usual perioperative course was discussed in detail with the patient and his family, all risks and benefits were explained, all questions were answered, and consent was obtained to proceed with surgery. The patient was scheduled for surgery at the earliest possible date. HOSPITAL COURSE: The patient was brought to the hospital on 12/10/23, taken to the preoperative area, prepared in the usual fashion, and subsequently taken to the operating room where Dr. Bobby performed left video-assisted thoracoscopic surgery with epicardial LV lead placement and upgrade to BiV pacer. Upon completion of surgery the patient was extubated and taken to the recovery room for further monitoring. He was eventually admitted to 3 S. cardiac stepdown unit for continued hemodynamic monitoring. Chest tube was placed to waterseal the night of surgery, the following morning repeat chest x-ray was acceptable and his left-sided pleural chest tube was discontinued without incident. Follow-up chest x-ray the next morning was stable. His oxygen was titrated down, he was tolerating oral diet, his pain was controlled, and he was ready to be discharged to home on postoperative day #2. He received written and verbal instruction regarding his medications, activity restrictions, signs and symptoms requiring physician notification, and follow-up appointments. Patient Condition at Discharge: Stable Plan - Discharge Summary Discharge Rx Participant: Yes New Discharge Prescriptions: Continue Indomethacin [Indocin] 50 mg PO HS Acetaminophen Tab [Tylenol] 325 mg PO Q4-6H PRN PRN Reason: Pain Tamsulosin HCl [Flomax] 0.4 mg PO DAILY Losartan Potassium 100 mg PO DAILY Cetirizine HCl 10 mg PO DAILY Iron Pill 1 tab PO QAM Fluticasone Nasal [place] [Flonase Nasal [place]] 1 spray EA NOSTRIL DAILY Azelastine HCl [Astepro] 1 spray NASAL BID PRN PRN Reason: allergies traZODone HCL 150 mg PO HS carvediloL 12.5 mg PO BID Discharge Medication List Acetaminophen Tab [Tylenol] 325 mg PO Q4-6H PRN 09/24/23 [History] Indomethacin [Indocin] 50 mg PO HS 09/24/23 [History] Iron Pill 1 tab PO QAM 09/24/23 [History] Azelastine HCl [Astepro] 1 spray NASAL BID PRN 10/12/23 [History] Cetirizine HCl 10 mg PO DAILY 10/12/23 [History] Fluticasone Nasal [place] [Flonase Nasal [place]] 1 spray EA NOSTRIL DAILY 10/12/23 [History] Losartan Potassium 100 mg PO DAILY 10/12/23 [History] Tamsulosin HCl [Flomax] 0.4 mg PO DAILY 10/12/23 [History] carvediloL 12.5 mg PO BID 10/12/23 [History] traZODone HCL 150 mg PO HS 10/12/23 [History] Follow up Appointment(s)/Referral(s): Ora Mchugh MD [STAFF PHYSICIAN] - 1 Week (Call for appointment) John Bobby MD [STAFF PHYSICIAN] - As Needed (May come in for checkup w/ Dr Bobby/Rylie [employer] ROUGH [employer]/Tio [employer] when you drive down for appointment with Dr. Mchugh/Aye) Activity/Diet/Wound Care/Special Instructions: DISCHARGE INSTRUCTIONS: 1. No driving for 2 weeks, or until physician gives their ok. 2. No lifting, pushing, or pulling more than 10 pounds for 2 weeks. The physician will advise of any restriction changes. 3. Continue pain control per as needed orders. Alternate acetaminophen (Tylenol) and ibuprofen (Motrin/Advil) for pain. 4. Continue with incentive spirometry and splinting until otherwise directed by the physician. 5. Leave chest tube dressing for 48 hours. After that, remove all dressings and shower daily. 6. Routine incision care. No powders, lotions, ointments on incisions. 7. Please call surgeon/[employer] for temp greater than 101 F or purulent drainage from incisions. PATIENT EDUCATION MATERIAL Instructions following a heart rhythm device implant. 1. Keep dressing DRY for 5 DAYS. You may cover the area with Saran or Cling Wrap, prior to a shower. 2. The dressing will be removed in the Device Clinic at [facility]. Absorbable sutures were used to close the wound. 3. Avoid raising the left arm above the shoulder level. 4 week restriction 4. Avoid arm movements, like backscratching, rubbing the head, or pulling on a cord. 4 weeks restriction 5. Gentle range of motion movements of the shoulder, closest to the incision should be performed to avoid a frozen shoulder. (Pendulum exercises of the shoulder) 6. The opposite arm may be used freely. 7. Avoid driving for 7 days. 8. Avoid activities such as golfing, swimming, weed whacking, lifting more than 10 pounds weight, bowling, gymnastics and weight training/lifting. (6 weeks res triction) 9. Activities such as wood chopping with an axe, pull-ups in the gymnasium, power lifting, arc-welding, being close to home induction cooktops will always be a problem. 10. Arm sling is only a reminder not to raise the arm above the head. You do not need to keep the arm completely immobilized. Your free to move the arm and use it and for normal activities. In case of any problems, please call [facility], Britni Gomez, @ [phone], Attention: Device Clinic Discharge Disposition: HOME SELF-CARE
--- NOTE | 2023-12-12 12:26 | P.PN ---
Subjective Progress Note Date: 12/12/23 The patient is a 73-year-old male who follows in the office with Dr. TOMASZ Mchugh. The patient recently underwent epicardial lead placement with Dr. Bobby. Device was interrogated. Patient interviewed and examined resting comfortably in the recliner chair. He denies any chest pain or pressure. No difficulty breathing. No dizziness or lightheadedness. GENERAL: Well-appearing, well-nourished and in no acute distress. NECK: Supple without JVD or thyromegaly. LUNGS: Breath sounds clear to auscultation bilaterally. Respiration equal and unlabored. No wheezes, rales or rhonchi. HEART: Regular rate and rhythm without murmurs, rubs or gallops. S1 and S2 heard. Serosanguineous drainage from dressing. Reinforced. EXTREMITIES: Normal range of motion, no edema. No clubbing or cyanosis. Peripheral pulses intact and strong. IMPRESSION: Epicardial LV lead placement Nonischemic cardiomyopathy status post dual-chamber ICD and RV lead Sick sinus syndrome Hypertension Hyperlipidemia PLAN: No change in medication regimen Follow-up with device clinic in 1 week Patient may be discharged from the cardiac standpoint I am dictating on behalf of Dr Kaden Griffiths's history/physical and assessment/plan. Objective - Vital Signs Vital signs: Vital Signs Temp 97.2 F L 12/11/23 20:50 Pulse 64 12/12/23 08:56 Resp 18 12/12/23 04:00 BP 118/73 12/12/23 04:00 Pulse Ox 96 12/12/23 04:00 FiO2 Intake & Output 12/11/23 12/12/23 12/12/23 18:59 06:59 18:59 Intake Total 630 20 120 Output Total 500 Balance 130 20 120 Intake: IV 30 20 Invasive Line 1 10 Invasive Line 3 20 20 Oral 600 120 Output: Urine 300 Post Void Residual 200 Other: Voiding Method Toilet Urinal # Voids 1 - Labs CBC & Chem 7: 12/11/23 07:15 12/11/23 07:15
--- NOTE | 2023-12-12 13:37 | XR ---
EXAMINATION TYPE: XR chest 2V DATE OF EXAM: 12/12/2023 6:37 AM CLINICAL INDICATION:Male, 73 years old with history of post LV lead placement; [facility] COMPARISON: 12/11/2023 and before TECHNIQUE: XR chest 2V. Frontal and lateral views of the chest.. FINDINGS: Left chest tube has been removed. Stable left chest dual-lead AICD. Monitor leads over the chest. Cardiomediastinal silhouette is stable. Mildly tortuous aorta. Mild cardiomegaly. Improved aeration of the lungs with decreased bibasilar pleural/parenchymal opacities. Persistent opa cities are on the left more than right. No pneumothorax visible. Osseous structures are unchanged. IMPRESSION: Improved aeration of the lungs with decreased bibasilar pleural/parenchymal opacities. Persistent opa cities are on the left more than right. Left chest tube has been removed. No visible pneumothorax.
--- NOTE | 2023-12-14 19:51 | CDI ---
Documentation Clarification Form Date: 12/14/2023 07:39:27 PM From: Keke Osborn Phone: Admit Date: 12/11/2023 12:59:00 PM Patient Name: Terry Aviles Visit Number: [id number] Discharge Date: 12/12/2023 11:56:00 AM ATTENTION: The Clinical Documentation Specialists (CDI) and [facility] Coding Staff appreciate your assistance in clarifying documentation. Please respond to the clarification below the line at the bottom and electronically sign. The CDI & [facility] Coding staff will review the response and follow-up if needed. Please note: Queries are made part of the Legal Health Record. If you have any questions, please contact the author of this message via ITS. Dr. John Bobby Diabetes is documented Progress Notes. Additional specificity regarding the diabetes diagnosis is requested. History/Risk Factors: 73yo M, NIDDMII, CHBs/pDualICD, NICM, SSS, HTN, HLD, Hx DVT, BPH, Gout, Hx Skin cancer Clinical Indicators: Glucose: 12/10 200- 257 Treatment: Rapid acting 6u insulin per Lenard Casillas DO Please clarify the type of diabetes, if known: [ ] Diabetes Type 2 with hyperglycemia [ ] Other, please specify [x ] Unable to Determine (Template Last Revised: October 2020) MTDD
--- NOTE | 2023-12-14 19:59 | CDI ---
Documentation Clarification Form Date: 12/14/2023 07:51:00 PM From: Keke Osborn Phone: Admit Date: 12/11/2023 12:59:00 PM Patient Name: Terry Aviles Visit Number: [id number] Discharge Date: 12/12/2023 11:56:00 AM ATTENTION: The Clinical Documentation Specialists (CDI) and [facility] Coding Staff appreciate your assistance in clarifying documentation. Please respond to the clarification below the line at the bottom and electronically sign. The CDI & [facility] Coding staff will review the response and follow-up if needed. Please note: Queries are made part of the Legal Health Record. If you have any questions, please contact the author of this message via ITS. Dr. John Bobby Your patient has the documented diagnosis of unspecified CHF per PPM Procedure Note. Additional information regarding the type of CHF is requested. History/Risk Factors: 73yo M, NIDDMII, CHB s/p Dual ICD, NICM, SSS, HTN, HLD, Hx DVT, BPH, Gout, Hx Skin cancer Clinical Indicators: VS/Pulse OX: 12/10 83-100% 12/11 96 Chest x ray: Heart is enlarged. Cardiac device is stable. Left-sidedchest tubewith nosizablepneumothorax. Smallbilateral pleural effusions. Surgical clips in the upper abdomen. Sqemphysemaalong the left chest. Treatment: The patient now requires conversion to a Dual chamber PPM, HisEFimproved and the ICD was note indicated. In your professional opinion, can you please clarify the type of CHF if known? [ ] Chronic Systolic Heart Failure (reduced EF) [ ] Chronic Diastolic Heart Failure (preserved EF) [ ] Chronic Systolic & Diastolic Heart Failure [ x] Other, please specify - The patient no longer has CHF. Previously had systolic HF [ ] Unable to determine (Template Last Revised: October 2020) MTDD
== END 2023-12-12 11:56 | disposition home or self-care (01) | DRG 243 ==
LOC: OR 09:37 → EDSTATUS 11:30 → 3SCARD 13:35 → OR 12-11 12:59 → 3SCARD 12-11 12:59
PROVIDERS: ADMIT Thoracic Surgery (Cardiothoracic Vascular Surgery); ATTEND Thoracic Surgery (Cardiothoracic Vascular Surgery)
PROC: 02H Heart and Great Vessels, Insertion (ICD-10-PCS; 2023-12-10)
PROC: 0JPT0PZ Removal of Cardiac Rhythm Related Device from Trunk Subcutaneous Tissue and Fascia, Open Approach (ICD-10-PCS; 2023-12-10)
PROC: 3E0T3BZ Introduction of Anesthetic Agent into Peripheral Nerves and Plexi, Percutaneous Approach (ICD-10-PCS; 2023-12-10)
PROC: 0JH606Z Insertion of Pacemaker, Dual Chamber into Chest Subcutaneous Tissue and Fascia, Open Approach (ICD-10-PCS; principal; 2023-12-10 11:20)
DX: I44.2 Atrioventricular block, complete (principal); I42.8 Other cardiomyopathies; I50.20 Unspecified systolic (congestive) heart failure; I87.1 Compression of vein; I11.0 Hypertensive heart disease with heart failure; I49.5 Sick sinus syndrome; E11.9 Type 2 diabetes mellitus without complications; G47.30 Sleep apnea, unspecified; E78.5 Hyperlipidemia, unspecified; N40.0 Benign prostatic hyperplasia without lower urinary tract symptoms; M10.9 Gout, unspecified; Z96.652 Presence of left artificial knee joint; Z82.49 Family history of ischemic heart disease and other diseases of the circulatory system; Z79.899 Other long term (current) drug therapy; Z86.718 Personal history of other venous thrombosis and embolism; Z85.828 Personal history of other malignant neoplasm of skin
CPT/HCPCS: 71045; 71046; 80048; 83036; 85025; 88300; 94640; 94760